=== PATIENT | female | born 2000 | race Caucasian/White ===

== ENCOUNTER 2020-07-13 12:00 | Emergency (ER) | payer SELFPAY ==
[~2020-07-13] VITALS: Ht 165.1 cm; Wt 68.0 kg
[~2020-07-13 12:00] MED LIST: ACYC200 PO; ACYC800 PO; CEPH500 PO; DEPRESSION MED; DIPHTC TP; FAMO40 PO; FLUO10 PO; HYDACE5 PO; NITR100CA PO; ONDA4 PO; PERM5TC TOP; PRED20 PO; Permethrin60 GM TP; RXONDA4ODT MM; RXOXYACE PO
[2020-07-13 13:04] LABS: BASOPHILS ABSOLUTE AUTO 0.02 K/mm3 (0.00-0.23); BASOPHILS PERCENT AUTO 0 % (0-2); EOSINOPHILS ABSOLUTE AUTO 0.05 K/mm3 (0.00-0.68); EOSINOPHILS PERCENT AUTO 0 % (0-6); Hematocrit 37.4 % (33.0-51.0); Hemoglobin 12.3 g/dL (11.5-16.0); IMMATURE GRAN ABSOLUTE AUTO 0.06 K/mm3 (0.00-0.10); IMMATURE GRAN PERCENT AUTO 1 % (0-1); LYMPHOCYTES PERCENT AUTO 26 % (21-46); MONOCYTES ABSOLUTE AUTO 0.83 K/mm3 (0.16-1.47); MONOCYTES PERCENT AUTO 7 % (4-13); Mean Corpuscular HGB 30.1 pg (26.0-34.0); Mean Corpuscular HGB Conc 32.9 g/dL (31.5-36.5); Mean Corpuscular Volume 91 fL (80-100); Mean Platelet Volume 11.4 fL (9.1-12.4); NEUTROPHILS PERCENT AUTO 66 % (41-73); Platelet Count 261 K/mm3 (150-400); RDW Coefficient Variation 13.8 % (11.7-14.2); Red Blood Cell Count 4.09 M/mm3 (3.80-5.20); White Blood Cell Count 11.86 K/mm3 (4.00-11.30)
[2020-07-13 13:11] LABS: Source, Urine Clean Catch
[2020-07-13 13:17] LABS: Appearance, Urine Hazy (Clear); Bilirubin, Urine Neg (Neg); Blood, Urine Neg (Neg); Color, Urine Yellow (P-Yellow); Glucose Qualitative, Urine Neg (Neg); Ketones, Urine Neg (Neg); Leukocyte Esterase, Urine 2+ (Neg); Nitrite, Urine Neg (Neg); Protein, Urine Neg (Neg); Specific Gravity, Urine 1.015 (1.003-1.022); Urobilinogen, Urine NORM (Normal)
[2020-07-13 13:39] LABS: Alanine Aminotransfer (ALT/SGP 20 U/L (12-78); Albumin, Blood 3.4 g/dL (3.4-5.0); Albumin/Globulin Ratio 0.9 (0.8-1.8); Alk Phos 92 U/L (50-136); Anion Gap 6 mmol/L (6-16); Aspartate Aminotrans (AST/SGOT 14 U/L (12-37); Bilirubin, Total 0.2 mg/dL (0.1-1.0); Blood Urea Nitrogen 8 mg/dL (8-24); Bun/Creatinine Ratio 17.5 (12.0-20.0); CO2, Blood 27 mmol/L (21-32); Calcium, Blood 8.9 mg/dL (8.5-10.1); Chloride, Blood 104 mmol/L (98-108); Creatinine, Blood 0.46 mg/dL (0.40-1.00); Globulin, Blood 3.7 g/dL (2.2-4.0); Glomerular Filtration Rate >60 (60-); Glucose, Blood 92 mg/dL (70-99); Potassium, Blood 3.8 mmol/L (3.5-5.5); Sodium, Blood 137 mmol/L (136-145); Total Protein, Blood 7.1 g/dL (6.4-8.2)
[2020-07-13 14:01] LABS: Amorphous Mod (0-Heavy); Bacteria Rare /hpf; Red Blood Cells, Urine 0-2 /hpf (0-2); Squamous Epithelial Cells Many /hpf (Few)
== END 2020-07-13 14:39 | disposition home or self-care (01) ==
LOC: ER 12:00
PROVIDERS: Physician Assistant
DX: O21.9 Vomiting of pregnancy, unspecified (principal); O99.891 Other specified diseases and conditions complicating pregnancy; R10.9 Unspecified abdominal pain; O99.330 Smoking (tobacco) complicating pregnancy, unspecified trimester; F17.200 Nicotine dependence, unspecified, uncomplicated; Z3A.00 Weeks of gestation of pregnancy not specified
CPT/HCPCS: 36415; 80053; 81001; 81025; 83690; 85025; 87086; 99284

== ENCOUNTER 2021-02-07 07:12 | Inpatient (IN) | payer OTHER ==
[~2021-02-07] VITALS: Ht 165.1 cm; Wt 101.4 kg
--- NOTE | 2021-02-07 09:27 | NUR ---
LABS DRAWN FROM IV START
[2021-02-07] MEDS ORDERED: ACYC400 PO (14:18)
[2021-02-07] MEDS ORDERED: PROM25 PO (14:19)
[2021-02-07] MEDS ORDERED: PANT20 PO (14:19)
[2021-02-07] MEDS ORDERED: PRENATAL TABLE1 EAC2 PO (14:19)
--- NOTE | 2021-02-07 14:48 | NUR ---
MOTHER OUT FOR FRESH AIR WITH FOB. LEFT WITH RN
--- NOTE | 2021-02-07 18:37 | NUR ---
PT UP TO BATHROOM TRYING TO HAVE A BM. WHILE BEARING DOWN PT NOTICED A BUMP. APPEARS THAT PT'S CERVIX IS PROTRUDING. PT USED SHREYA BOTTLE TO CLEANSE. WILL CONTINUE TO MONITOR. ADVISED PT AGAINST STRAINING.
[2021-02-08 05:23] LABS: BASOPHILS ABSOLUTE AUTO 0.04 K/mm3 (0.00-0.23); BASOPHILS PERCENT AUTO 0 % (0-2); EOSINOPHILS PERCENT AUTO 1 % (0-6); Hematocrit 33.4 % (33.0-51.0); Hemoglobin 11.1 g/dL (11.5-16.0); IMMATURE GRAN ABSOLUTE AUTO 0.28 K/mm3 (0.00-0.10); IMMATURE GRAN PERCENT AUTO 2 % (0-1); LYMPHOCYTES ABSOLUTE AUTO 3.31 K/mm3 (0.84-5.20); LYMPHOCYTES PERCENT AUTO 20 % (21-46); MONOCYTES ABSOLUTE AUTO 1.29 K/mm3 (0.16-1.47); MONOCYTES PERCENT AUTO 8 % (4-13); Mean Corpuscular HGB 29.5 pg (26.0-34.0); Mean Corpuscular HGB Conc 33.2 g/dL (31.5-36.5); Mean Corpuscular Volume 89 fL (80-100); Mean Platelet Volume 11.1 fL (9.1-12.4); NEUTROPHILS ABSOLUTE AUTO 11.54 K/mm3 (1.96-9.15); NEUTROPHILS PERCENT AUTO 70 % (41-73); Platelet Count 236 K/mm3 (150-400); RDW Coefficient Variation 15.6 % (11.7-14.2); RDW Standard Deviation 50.9 fL (35.1-46.3); Red Blood Cell Count 3.76 M/mm3 (3.80-5.20); White Blood Cell Count 16.56 K/mm3 (4.00-11.30)
--- NOTE | 2021-02-08 06:02 | NUR ---
EDUCATED MOM ON DIFFERENT WAYS TO WAKE BABY UP FOR FEEDING. MOM REPORTS BABY HAS NOT FED WELL THIS SHIFT. ENCOURAGED MOM TO KEEP BABY SKIN TO SKIN AND TO KEEP BABY AWAKE FOR AN ADEQUATE FEED. BABY LATCHES WELL AT THE BREAST, BUT TENDS TO FALL ASLEEP AFTER ONLY FEEDING FOR APPROX 5 MINUTES. THIS RN INSTRUCTED MOM TO ATTEMPT FEEDING AGAIN AT THIS TIME. BABY APPEARED TO BE LATCHED ONTO THE BREAST BEFORE THIS RN LEFT THE ROOM.
[2021-02-08] MEDS ORDERED: IBU800 MG PO (12:35)
[2021-02-08] MEDS ORDERED: Acetaminophen325 M1 PO (12:36)
--- NOTE | 2021-02-08 14:10 | NUR ---
DISCHARGE PARENTS VERBALIZE UNDERSTANDING OF DC INTRUCTIONS AND FU APPOINTMENTS. PT DID NOT HAVE RIDE HOME AND [facility] WAS CALLED. THE TWO HOUR WAIT FRUSTRATED THE MOTHER AND HER MOOD WENT FROM HAPPY AND CALM TO LABILE AND ANGRY AT SO. SHE WAS IRATE AND WALKED OUT. PT FOUND A RIDE HOME AT THAT POINT ALONG WITH FATHER AND BABY. SINCE [facility] CLEARED CORE REFERAL WILL BE FAXED FOR IMMEDIATE FU.
--- NOTE | 2021-02-11 13:54 | NUR ---
PT SCHEDULED FOR PPFU TODAY AT 1300. PT DID NOT SHOW. CALLED PT ON PHONE NUMBER LISTED, FIRST ATTEMPT MAILBOX WAS FULL, SECOND ATTEMPT WAS ABLE TO LEAVE A MESSAGE. PT HAS NOT RETURNED CALL. WILL ATTEMPT TO CALL AGAIN IN THE MORNING.
== END 2021-02-08 13:50 | disposition home or self-care (01) | DRG 806 ==
LOC: OBS 07:12 → BC 07:19
PROVIDERS: ADMIT Nurse Practitioner Obstetrics & Gynecology
PROC: 10E0XZZ Delivery of Products of Conception, External Approach (ICD-10-PCS; principal; 2021-02-07)
DX: O99.824 Streptococcus B carrier state complicating childbirth (principal); O98.413 Viral hepatitis complicating pregnancy, third trimester; Z37.0 Single live birth; Z3A.38 38 weeks gestation of pregnancy; B19.20 Unspecified viral hepatitis C without hepatic coma; O99.344 Other mental disorders complicating childbirth; F41.8 Other specified anxiety disorders
CPT/HCPCS: 36415; 51702; 85025; A9270; J0290; J2210; J2405; J3010; J7120; U0004